=== PATIENT | female | born 2000 | race Two or more races ===

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

== ENCOUNTER 2022-02-09 13:09 | Emergency (ER) | payer MEDICAID ==
[~2022-02-09] VITALS: Ht 170.2 cm; Wt 47.0 kg
[2022-02-09 14:13] VITALS: BP 124/91
[2022-02-09] MEDS ORDERED: ACET-1080 PO (15:10)
== END 2022-02-09 15:20 | disposition home or self-care (01) ==
LOC: ER 13:09
DX: G44.209 Tension-type headache, unspecified, not intractable (principal)
CPT/HCPCS: 70450